=== PATIENT | male | born 1945 | race Caucasian/White ===

== ENCOUNTER 2021-12-28 20:39 | Emergency (ER) | payer MEDICARE ==
[~2021-12-28 20:39] MED LIST: ALDACTONE25 MG PO; COREG 3.125M3.125 MG PO; LASIX40 MG PO; LEVAQUIN500 MG PO; NITROQUIK SL0.4 MG PO; XARELTO15 MG PO; ZESTRIL5 MG PO
[2021-12-28 21:28] LABS: BASOPHIL 0.3 % (0-2); EOSINOPHIL 0.3 % (0-7); HCT 43.3 % (42.0-52.0); HGB 14.4 g/dl (13.2-18.0); LYMPHOCYTE 8.2 % (15-48); MCH 32.5 pg (25.0-31.0); MCHC 33.3 g/dL (32.0-36.0); MCV 97.7 fL (78.0-100.0); MONOCYTE 15.2 % (0-12); MPV 12.5 fL (6.0-9.5); NEUTROPHIL 75.5 % (41-80); NRBC 1.9; RBC 4.43 M/uL (4.70-6.00); RDW 18.6 % (11.5-14.0); WBC 7.7 K/uL (4.0-10.5)
[2021-12-28 21:48] LABS: PLT 71 K/uL (150-400)
[2021-12-28 21:51] LABS: ALBUMIN 3.7 g/dL (3.4-5.0); BILIRUBIN - TOTAL 2.6 mg/dL (0.2-1.0); BUN/CREAT RATIO (CALC) 28.3 RATIO; CREATININE 1.59 mg/dL (0.67-1.17); GLOBULIN (CALCULATION) 3.3 g/dL; MAGNESIUM 2.3 mg/dL (1.8-2.4); POTASSIUM 4.6 mmol/L (3.5-5.1)
[2021-12-28 21:52] LABS: LACTIC ACID 6.6 mmol/L (0.4-1.9)
[2021-12-28 22:06] LABS: PROTHROMBIN TIME 50.1 SECONDS (11.8-13.4); PTT 40.9 SECONDS (24.4-34.7)
[2021-12-28 22:09] LABS: INR 5.7 (0.9-1.2)
[2021-12-28 22:39] LABS: INFLUENZA A NAA NEGATIVE (NEGATIVE)
[2021-12-28 22:40] LABS: CORONAVIRUS 2019 SARS-COV-2 POSITIVE (NEGATIVE)
[2021-12-29 01:53] LABS: BUN/CREAT RATIO (CALC) 29.9 RATIO; CREATININE 1.54 mg/dL (0.67-1.17); POTASSIUM 4.7 mmol/L (3.5-5.1)
[2021-12-29 06:39] LABS: BASOPHIL 0.1 % (0-2); EOSINOPHIL 0 % (0-7); HCT 38.2 % (42.0-52.0); HGB 13.1 g/dl (13.2-18.0); LYMPHOCYTE 3.3 % (15-48); MCH 32.8 pg (25.0-31.0); MCHC 34.3 g/dL (32.0-36.0); MCV 95.5 fL (78.0-100.0); MONOCYTE 8.7 % (0-12); NRBC 1.7; PLT 51 K/uL (150-400); RDW 18.2 % (11.5-14.0); WBC 8.3 K/uL (4.0-10.5)
[2021-12-29 07:06] LABS: NEUTROPHIL 87.3 % (41-80)
[2021-12-29 09:20] LABS: ALBUMIN 3.2 g/dL (3.4-5.0); BILIRUBIN - TOTAL 2.9 mg/dL (0.2-1.0); BUN 46 mg/dL (7-18); CHLORIDE 99 mmol/L (98-107); CO2 (BICARBONATE) 21 mmol/L (21-32); CREATININE 1.59 mg/dL (0.67-1.17); GLOBULIN (CALCULATION) 2.7 g/dL; GLUCOSE 147 mg/dL (74-106); POTASSIUM 4.4 mmol/L (3.5-5.1); TOTAL PROTEIN 5.9 g/dL (6.4-8.2)
[2021-12-29 09:21] LABS: ALKALINE PHOSHATASE 186 U/L (46-116); ALT 2175 U/L (16-63); AST >2000 U/L (15-37); MAGNESIUM 2.5 mg/dL (1.8-2.4)
[2021-12-30 08:11] LABS: HBSAG SCREEN Negative (Negative); HEP A AB, IGM Negative (Negative); HEP B CORE AB, IGM Negative (Negative); HEP C VIRUS AB <0.1 (0.0-0.9)
== END 2021-12-29 08:30 | disposition other institution (70) ==
LOC: FER 20:39
PROVIDERS: Internal Medicine
DX: U07.1 COVID-19 (principal); I50.1 Left ventricular failure, unspecified; I71.4 Abdominal aortic aneurysm, without rupture; E87.2 Acidosis; R94.5 Abnormal results of liver function studies; M84.411A Pathological fracture, right shoulder, initial encounter for fracture; J44.9 Chronic obstructive pulmonary disease, unspecified; F17.210 Nicotine dependence, cigarettes, uncomplicated
CPT/HCPCS: 36415; 36600; 71045; 71250; 80048; 80053; 80074; 82803; 83605; 83735; 83880; 84145; 84484; 85025; 85610; 85730; 87040; 93005; C9113; J0282; J1100; J2543; J3475; J7060; U0002